=== PATIENT | male | born 1980 | race African-American/Black ===

== ENCOUNTER 2018-06-02 09:31 | Emergency (ER) | payer BC, OTHER ==
--- NOTE | 2018-06-02 10:54 | ULT ---
BILATERAL TESTICULAR AND SCROTAL ULTRASOUND: HISTORY: Left groin pain. Evaluate for hernia. TECHNIQUE: Multiplanar dumont-scale and color Doppler images were obtained in a bilateral testicular and scrotal u ltrasound. Spectral analysis of the Doppler waveforms was performed. FINDINGS: The testicles are normal in echogenicity without focal lesions and demonstrate normal symmetric inter nal flow. The epididymides are unremarkable. No hydrocele or varicocele is seen. No hernia is seen . IMPRESSION: Unremarkable testicular/scrotal ultrasound. POS: DEONTE
== END 2018-06-02 10:50 | disposition home or self-care (01) ==
LOC: SCSER 09:31
DX: S39.011A Strain of muscle, fascia and tendon of abdomen, initial encounter (principal); E05.90 Thyrotoxicosis, unspecified without thyrotoxic crisis or storm; X50.0XXA Overexertion from strenuous movement or load, initial encounter
CPT/HCPCS: 76870; 93976